=== PATIENT | male | born 1990 | race Caucasian/White ===

== ENCOUNTER 2020-06-23 11:06 | Emergency (ER) | payer MEDICAID ==
[~2020-06-23] VITALS: Ht 172.7 cm; Wt 70.0 kg
[2020-06-23] MEDS ORDERED: ketorolac tromethamine 15mg/ml inj. IM ONE (11:20)
[2020-06-23] MEDS ORDERED: proCHLORperazine 10 MG/2 ml inj IM ONE (11:20)
[2020-06-23] MEDS ORDERED: diphenhydrAMINE 50 mg/ml inj IM ONE (11:20)
--- NOTE | 2020-06-23 11:32 | NUR ---
pt moved from tent to room 2 with isolation precautions
[2020-06-23] MEDS ORDERED: normal saline 1000ml 1,000 ML IV ONE (11:55)
[2020-06-23 13:32] VITALS: BP 116/59
== END 2020-06-23 13:10 | disposition home or self-care (01) ==
LOC: ER 11:09
DX: G43.909 Migraine, unspecified, not intractable, without status migrainosus (principal); Z20.828 Contact with and (suspected) exposure to other viral communicable diseases
CPT/HCPCS: 36415; 87635; 96360; 96372; 99284; J0780; J1200; J1885; J7030

== ENCOUNTER 2020-11-21 13:27 | Emergency (ER) | payer MEDICAID, OTHER ==
[~2020-11-21] VITALS: Ht 170.2 cm; Wt 68.2 kg
[2020-11-21 13:38] VITALS: BP 117/61
== END 2020-11-21 14:40 | disposition home or self-care (01) ==
LOC: ER 13:29
DX: S00.03XA Contusion of scalp, initial encounter (principal); W01.0XXA Fall on same level from slipping, tripping and stumbling without subsequent striking against object, initial encounter; Y93.89 Activity, other specified; Y92.89 Other specified places as the place of occurrence of the external cause; Y99.8 Other external cause status
CPT/HCPCS: 99282

== ENCOUNTER 2021-08-10 17:56 | Emergency (ER) | payer OTHER ==
[~2021-08-10] VITALS: Ht 170.2 cm; Wt 72.7 kg
[2021-08-10 18:01] VITALS: BP 139/77
[2021-08-10] MEDS ORDERED: MECL-159 PO ×2 (19:49→19:52)
[2021-08-10] MEDS ORDERED: ORPH100T2 PO ×2 (19:49→19:52)
[2021-08-10] MEDS ORDERED: HYDR-3972 PO (19:53)
== END 2021-08-10 20:15 | disposition home or self-care (01) ==
LOC: ER 17:58
DX: S49.91XA Unspecified injury of right shoulder and upper arm, initial encounter (principal); G44.209 Tension-type headache, unspecified, not intractable; R42 Dizziness and giddiness; Z72.89 Other problems related to lifestyle; Z79.899 Other long term (current) drug therapy; W19.XXXA Unspecified fall, initial encounter; Y93.84 Activity, sleeping; Y92.091 Bathroom in other non-institutional residence as the place of occurrence of the external cause; Y99.8 Other external cause status
CPT/HCPCS: 73030; 99283

== ENCOUNTER 2024-11-08 20:13 | Emergency (ER) | payer MEDICAID ==
[~2024-11-08] VITALS: Ht 167.6 cm; Wt 70.5 kg
[~2024-11-08 20:13] MED LIST: MECL-302 PO; ORPH100T4 PO
[2024-11-08 20:34] VITALS: BP 130/73; PULSE 108; RESP 16; O2SAT 100
[2024-11-08 22:22] VITALS: TEMP 98.6
[2024-11-08] MEDS: TETanus/Pertussis (Acell)/Diphther VAC/PF (Tdap-Adult) 0.5ml syringe IMVAC ONE (22:27)
== END 2024-11-08 22:37 | disposition home or self-care (01) ==
LOC: ER 20:14
DX: S61.512A Laceration without foreign body of left wrist, initial encounter (principal); Z79.899 Other long term (current) drug therapy; Z72.89 Other problems related to lifestyle; W26.8XXA Contact with other sharp object(s), not elsewhere classified, initial encounter; Y93.G1 Activity, food preparation and clean up; Y92.89 Other specified places as the place of occurrence of the external cause; Y99.8 Other external cause status
CPT/HCPCS: 12001; 90471; 90715; 99283; A6258

== ENCOUNTER 2025-01-28 07:58 | Emergency (ER) | payer MEDICAID ==
[~2025-01-28] VITALS: Ht 167.6 cm; Wt 63.9 kg
[2025-01-28 08:16] VITALS: BP 139/82; PULSE 104; RESP 15; O2SAT 100
--- NOTE | 2025-01-28 09:01 | Physician Documentation ---
History of Present Illness ~ Chief Complaint: Abscess Stated Complaint: EYE SWELLING Time Seen by MD: 09:00 Primary Medical Doctor: jose luis GROVES 35-year-old male presents to the ED with a complaint of three days of the developing abscess on his left eyebrow. It is not currently draining, does have profuse swelling. Denies any fevers however Tetanus Within 5 Years: No Medication Reconciliation Allergies: Coded Allergies: No Known Allergies (Unverified , 11/08/24) Scheduled Cephalexin*Monohydrate* (Keflex*), 1 CAP PO QID Meclizine HCl (Meclizine HCl), 1 TAB PO QID Sulfamethoxazole/Trimethoprim (Septra Ds Tab), 1 TAB PO Q12H Scheduled PRN Orphenadrine Citrate (Norflex), 1 TAB PO QHS PRN for pain Past Medical History Past Medical History: No Pertinent History Past Surgical History: noncontributory Alcohol Use: Occasionally Drug Use: none Lives In: Home Occupation: employed Review of Systems All Other Systems at this time: Reviewed and Negative ROS As stated above in the HPI, otherwise all systems are reviewed and negative. Physical Exam Vital Signs: Temperature: 98.0, Source: Temporal, Heart Rate: 104, Respiratory Rate: 15, BP: 139/82, Pulse Oximetry: 100, Weight: 63.900 Physical Exam General: Alert, no apparent distress. HEENT: PERRL, EOMI, no injection, moist mucous membranes. Normal swollen in the left brow with a central raised area with erythema no drainage Psychiatric: Normal mood and affect. Skin: Normal color, warm and dry. No edema, no ecchymosis. Procedures I & D Procedure : Anesthesia: Lidocaine Blade Size: 11 Prep/Supplies: betadine prep, packing placed Incision: pus drained Tolerated Procedure Well?: yes, no complications Progress Results/Orders Results/Orders Orders - CASANDRA ALLEN NP Laceration/I&D Tray Set Up (01/28/25 ) Completed Orders - CASANDRA ALLEN NP Lidocaine 1% W/Epi 1:100,000 (Xylocaine (01/28/25 09:05) Vital Signs 01/28/25 01/28/25 08:16 09:50 Temp 98.0 98.0 Pulse 104 Resp 15 B/P (MAP) 139/82 Pulse Ox 100 Medical Decision Making Findings Patient tolerated procedure well,i advised him on home wound care. started On antibiotics today. Differential Dx:Considerations: Include: Abscess, Bacteremia, Cellulitis, Erysipelas, Felon, Gas gangrene, Hidrademitis suppurativa, Impetigo, Lymphangitis, Osteromyelitis, Paronychia, Septicemia, Other Departure Disposition: HOME / SELF CARE / HOMELESS Impression: Primary Impression: Abscess Discharge Instructions: Skin Abscess, [id number] Referrals: NO PRIMARY CARE PROVIDER (PCP) Prescriptions Cephalexin*Monohydrate* (Keflex*) 500 Mg Capsule 1 CAP PO QID, #40 CAP Prov: CASANDRA ALLEN DISTILLATION OPERATOR HELPER 01/28/25 Sulfamethoxazole/Trimethoprim (Septra Ds Tab) 800 Mg/160 Mg Tablet 1 TAB PO Q12H for 10 Days, #20 TAB Prov: CASANDRA ALLEN DISTILLATION OPERATOR HELPER 01/28/25 Education Educated: Patient Educated regarding: diagnosis Signature Scribe Signature: t Attestation: Scribed for Casandra Allen [employer] by Casandra Vallejo NP . 01/28/25 09:42 CASANDRA ALLEN NP Jan 28, 2025 09:01
[2025-01-28] MEDS: LIDOcaine 1% W/epiNEPHrine 1:100,000 20ml vial SQ ONE (09:21)
[2025-01-28] MEDS ORDERED: SULF1TAB45 PO (09:43)
[2025-01-28] MEDS ORDERED: CEPH-585 PO (09:43)
[2025-01-28 09:50] VITALS: TEMP 98
== END 2025-01-28 09:52 | disposition home or self-care (01) ==
LOC: ER 07:59
DX: L02.01 Cutaneous abscess of face (principal)
CPT/HCPCS: 10060; 99283; A6410; A6449